=== PATIENT | female | born 1960 | race Hispanic/Latino ===

== ENCOUNTER 2020-06-15 21:45 | Inpatient (IN) | payer SELFPAY ==
[~2020-06-15] VITALS: Ht 152.4 cm; Wt 78.0 kg
[2020-06-15] MEDS ORDERED: DEXAMETHASONE SOD PHOS 10 MG/1 ML VIAL IV ONE (22:00)
[2020-06-15] MEDS ORDERED: ACETAMINOPHEN 325 MG TAB PO ONE (22:00)
[2020-06-15] MEDS ORDERED: SODIUM CHLORIDE 0.9% 1000ML 1,000 ML ONE (22:08)
[2020-06-15] MEDS ORDERED: ACETAMINOPHEN 325 MG TAB ONE (22:08)
[2020-06-15] MEDS ORDERED: OSELTAMIVIR PHOSPHATE 75 MG CAP PO ONE (22:15)
[2020-06-15 22:17] LABS: HEMATOCRIT 35.3 % (34.2-44.1); HEMOGLOBIN 11.6 g/dL (12.0-16.0); LYMPHOCYTES # (AUTO) 0.3 (1.0-3.2); MEAN CORPUSCULAR HEMOGLOBIN 24.8 pg (28-32); MEAN CORPUSCULAR HGB CONC 32.9 g/dL (31-35); MEAN CORPUSCULAR VOLUME 75.4 fL (81-99); MONOCYTES # (AUTO) 0.1 (0.2-0.8); MONOCYTES % 1.4 % (4.4-11.3); NEUTROPHILS # (AUTO) 5.8 (2.1-6.9); NEUTROPHILS % 93.3 % (38.7-80.0); PLATELET COUNT 281 x10e3/uL (140-360); RED BLOOD COUNT 4.68 x10e6/uL (3.6-5.1); RED CELL DISTRIBUTION WIDTH 13.3 % (11.7-14.4)
[2020-06-15 22:31] LABS: ALBUMIN 3.3 g/dL (3.5-5.0); ALBUMIN/GLOBULIN RATIO 0.8 (0.8-2.0); ANION GAP 18.1 mmol/L (8-16); CALCIUM 9.5 mg/dL (8.4-10.2); CREATININE, SERUM 0.95 mg/dL (0.57-1.11); POTASSIUM 4.1 mmol/L (3.5-5.1)
[2020-06-15] MEDS ORDERED: AZITHROMYCIN 500MG/NS 250 ML 250 ML IV STA (22:35)
[2020-06-15] MEDS ORDERED: CEFTRIAXONE SOD 1 GM/NS 50 ML 50 ML IV ONE (22:45)
[2020-06-16] VITALS (10 sets, daily range): BP systolic 114–139; BP diastolic 48–67
[2020-06-16] MEDS ORDERED: DIOVAN80 MG PO (01:26)
[2020-06-16] MEDS ORDERED: AMLODIPINE BESY10 MG PO (01:26)
[2020-06-16] MEDS ORDERED: GLIMEPIRIDE2 MG PO (01:26)
[2020-06-16] MEDS ORDERED: TRICOR145 MG PO (01:26)
[2020-06-16] MEDS ORDERED: METFORMIN HCL500 MG PO (01:26)
[2020-06-16] MEDS ORDERED: LIPITOR20 MG PO (01:26)
[2020-06-16] MEDS ORDERED: SODIUM CHLORIDE 0.9% 250ML 250 ML ONE ×2 (05:28→21:57)
[2020-06-16] MEDS: AZITHROMYCIN 500MG/NS 250 ML 250 ML IV SCH (05:30)
[2020-06-16 08:16] LABS: HEMATOCRIT 34.2 % (34.2-44.1); LYMPHOCYTES # (AUTO) 0.3 (1.0-3.2); LYMPHOCYTES % 7.6 % (18.0-39.1); MEAN CORPUSCULAR HEMOGLOBIN 24.6 pg (28-32); MEAN CORPUSCULAR HGB CONC 32.2 g/dL (31-35); MEAN CORPUSCULAR VOLUME 76.3 fL (81-99); MONOCYTES # (AUTO) 0.1 (0.2-0.8); MONOCYTES % 1.6 % (4.4-11.3); NEUTROPHILS # (AUTO) 3.9 (2.1-6.9); NEUTROPHILS % 90.6 % (38.7-80.0); PLATELET COUNT 268 x10e3/uL (140-360); RED BLOOD COUNT 4.48 x10e6/uL (3.6-5.1); RED CELL DISTRIBUTION WIDTH 13.3 % (11.7-14.4)
[2020-06-16] MEDS: ENOXAPARIN 30 MG/0.3 ML SYR SC SCH ×2 (08:17→20:07)
[2020-06-16] MEDS: ACETAMINOPHEN 325 MG TAB PO PRN ×2 (08:17→15:25)
[2020-06-16 08:33] LABS: ANION GAP 15.7 mmol/L (8-16); BLOOD UREA NITROGEN 9 mg/dL (7-26); BUN/CREATININE RATIO 11 (6-25); CALCIUM 9.3 mg/dL (8.4-10.2); CARBON DIOXIDE 21 mmol/L (22-29); CHLORIDE 102 mmol/L (98-107); CREATININE, SERUM 0.82 mg/dL (0.57-1.11); EST GLOMERULAR FILTRATION RATE > 60 ML/MIN (60-); GLUCOSE 342 mg/dL (74-118); POTASSIUM 4.7 mmol/L (3.5-5.1); SODIUM 134 mmol/L (136-145)
[2020-06-16] MEDS ORDERED: INSULIN LISPRO 100 UNIT/1 ML 3ML VIAL SQ NR (09:45)
[2020-06-16] MEDS ORDERED: DEXTROSE 50% SYRINGE 50 ML IV PRN (09:45)
[2020-06-16 10:50] LABS: LYMPHOCYTES % (MANUAL) 8 % (19-48); MONOCYTES % (MANUAL) 1 % (3.4-9.0); NEUTROPHILS % (MANUAL) 91 % (40-74)
[2020-06-16] MEDS: INSULIN LISPRO 100 UNIT/1 ML 3ML VIAL SQ SCH ×3 (11:30→20:07)
[2020-06-16] MEDS ORDERED: REMDESIVIR 200MG/NS 100ML 200 MG in SODIUM CHLORIDE 0.9% 100 ML 100 ML IV ONE (14:00)
[2020-06-16] MEDS ORDERED: DEXAMETHASONE SOD PHOS 10 MG/1 ML VIAL IV SCH (17:00)
[2020-06-16] MEDS: ALBUTEROL SULFATE HFA 8GM INHALATION AEROSOL INH SCH (20:00)
[2020-06-16] MEDS: GUAIFENESIN/DEXTROMETHORPHAN LIQD 5 ML UDC PO PRN (20:07)
[2020-06-16] MEDS: ATORVASTATIN 20 MG TAB PO SCH (20:07)
[2020-06-16] MEDS ORDERED: CEFTRIAXONE SOD 1 GM/NS 50 ML 50 ML IV SCH (22:00)
[2020-06-17] VITALS (10 sets, daily range): BP systolic 99–138; BP diastolic 39–73
[2020-06-17] MEDS: ALBUTEROL SULFATE HFA 8GM INHALATION AEROSOL INH SCH ×4 (01:14→19:00)
[2020-06-17] MEDS: AZITHROMYCIN 500MG/NS 250 ML 250 ML IV SCH (04:45)
[2020-06-17] MEDS: GUAIFENESIN/DEXTROMETHORPHAN LIQD 5 ML UDC PO PRN (07:32)
[2020-06-17] MEDS: INSULIN LISPRO 100 UNIT/1 ML 3ML VIAL SQ SCH ×4 (07:34→21:32)
[2020-06-17] MEDS: ENOXAPARIN 30 MG/0.3 ML SYR SC SCH ×2 (08:11→21:30)
[2020-06-17] MEDS: ACETAMINOPHEN 325 MG TAB PO PRN (08:12)
[2020-06-17] MEDS: REMDESIVIR 100MG/NS 100ML 100 MG in SODIUM CHLORIDE 0.9% 100 ML 100 ML IV SCH (13:10)
[2020-06-17] MEDS: PREDNISONE 20 MG TAB PO SCH (16:08)
[2020-06-17] MEDS: ATORVASTATIN 20 MG TAB PO SCH (21:30)
[2020-06-18] VITALS (7 sets, daily range): BP systolic 106–137; BP diastolic 55–63
[2020-06-18] MEDS: ALBUTEROL SULFATE HFA 8GM INHALATION AEROSOL INH SCH ×4 (01:00→19:30)
[2020-06-18] MEDS: GUAIFENESIN/DEXTROMETHORPHAN LIQD 5 ML UDC PO PRN ×2 (07:59→15:35)
[2020-06-18] MEDS: ENOXAPARIN 30 MG/0.3 ML SYR SC SCH ×2 (07:59→20:29)
[2020-06-18] MEDS: PREDNISONE 20 MG TAB PO SCH ×2 (07:59→15:34)
[2020-06-18] MEDS: ACETAMINOPHEN 325 MG TAB PO PRN ×2 (07:59→15:35)
[2020-06-18] MEDS: INSULIN LISPRO 100 UNIT/1 ML 3ML VIAL SQ SCH ×4 (08:14→20:30)
[2020-06-18] MEDS: REMDESIVIR 100MG/NS 100ML 100 MG in SODIUM CHLORIDE 0.9% 100 ML 100 ML IV SCH (14:19)
[2020-06-18] MEDS: ATORVASTATIN 20 MG TAB PO SCH (20:29)
[2020-06-19] VITALS (8 sets, daily range): BP systolic 90–156; BP diastolic 47–76
[2020-06-19] MEDS: ALBUTEROL SULFATE HFA 8GM INHALATION AEROSOL INH SCH ×4 (01:00→19:45)
[2020-06-19] MEDS: ACETAMINOPHEN 325 MG TAB PO PRN (04:10)
[2020-06-19 05:05] LABS: BASOPHILS % 0.2 % (0.0-1.0); EOSINOPHILS % 0.2 % (0.0-6.0); HEMATOCRIT 32.5 % (34.2-44.1); HEMOGLOBIN 10.6 g/dL (12.0-16.0); LYMPHOCYTES # (AUTO) 0.7 (1.0-3.2); MEAN CORPUSCULAR HEMOGLOBIN 25.1 pg (28-32); MEAN CORPUSCULAR HGB CONC 32.6 g/dL (31-35); MEAN CORPUSCULAR VOLUME 76.8 fL (81-99); MONOCYTES # (AUTO) 0.1 (0.2-0.8); MONOCYTES % 1.5 % (4.4-11.3); NEUTROPHILS # (AUTO) 5.6 (2.1-6.9); NEUTROPHILS % 86.2 % (38.7-80.0); PLATELET COUNT 446 x10e3/uL (140-360); RED BLOOD COUNT 4.23 x10e6/uL (3.6-5.1); RED CELL DISTRIBUTION WIDTH 13.6 % (11.7-14.4)
[2020-06-19 05:25] LABS: ALANINE AMINOTRANSFERASE 48 IU/L (0-55); ALBUMIN 2.6 g/dL (3.5-5.0); ALBUMIN/GLOBULIN RATIO 0.7 (0.8-2.0); ALKALINE PHOSPHATASE 79 IU/L (40-150); ANION GAP 16.7 mmol/L (8-16); BLOOD UREA NITROGEN 13 mg/dL (7-26); BUN/CREATININE RATIO 19 (6-25); CALCIUM 8.9 mg/dL (8.4-10.2); CARBON DIOXIDE 26 mmol/L (22-29); CHLORIDE 98 mmol/L (98-107); CREATININE, SERUM 0.67 mg/dL (0.57-1.11); EST GLOMERULAR FILTRATION RATE > 60 ML/MIN (60-); GLUCOSE 221 mg/dL (74-118); MAGNESIUM 1.6 MG/DL (1.3-2.1); POTASSIUM 3.7 mmol/L (3.5-5.1); SODIUM 137 mmol/L (136-145)
[2020-06-19] MEDS: INSULIN LISPRO 100 UNIT/1 ML 3ML VIAL SQ SCH ×4 (07:30→20:45)
[2020-06-19] MEDS: PREDNISONE 20 MG TAB PO SCH ×2 (09:07→16:06)
[2020-06-19] MEDS: ENOXAPARIN 30 MG/0.3 ML SYR SC SCH ×2 (09:07→20:45)
[2020-06-19] MEDS: REMDESIVIR 100MG/NS 100ML 100 MG in SODIUM CHLORIDE 0.9% 100 ML 100 ML IV SCH (14:21)
[2020-06-19] MEDS: ATORVASTATIN 20 MG TAB PO SCH (20:45)
[2020-06-20] VITALS (8 sets, daily range): BP systolic 121–153; BP diastolic 49–77
[2020-06-20] MEDS: ALBUTEROL SULFATE HFA 8GM INHALATION AEROSOL INH SCH ×5 (01:30→19:20)
[2020-06-20] MEDS: ACETAMINOPHEN 325 MG TAB PO PRN ×2 (03:46→21:16)
[2020-06-20] MEDS: GUAIFENESIN/DEXTROMETHORPHAN LIQD 5 ML UDC PO PRN (03:58)
[2020-06-20] MEDS: INSULIN LISPRO 100 UNIT/1 ML 3ML VIAL SQ SCH ×4 (07:30→21:00)
[2020-06-20] MEDS: ENOXAPARIN 30 MG/0.3 ML SYR SC SCH ×2 (08:47→21:00)
[2020-06-20] MEDS: PREDNISONE 20 MG TAB PO SCH ×2 (08:47→16:51)
[2020-06-20] MEDS: BENZONATATE 100 MG CAP PO SCH ×2 (14:03→21:00)
[2020-06-20] MEDS: REMDESIVIR 100MG/NS 100ML 100 MG in SODIUM CHLORIDE 0.9% 100 ML 100 ML IV SCH (14:03)
[2020-06-20] MEDS: ATORVASTATIN 20 MG TAB PO SCH (21:00)
[2020-06-21] VITALS (8 sets, daily range): BP systolic 112–156; BP diastolic 51–73
[2020-06-21] MEDS: ALBUTEROL SULFATE HFA 8GM INHALATION AEROSOL INH SCH ×3 (06:57→20:13)
[2020-06-21] MEDS: INSULIN LISPRO 100 UNIT/1 ML 3ML VIAL SQ SCH ×4 (07:30→20:15)
[2020-06-21] MEDS: PREDNISONE 20 MG TAB PO SCH ×2 (08:36→16:53)
[2020-06-21] MEDS: BENZONATATE 100 MG CAP PO SCH ×3 (08:36→20:25)
[2020-06-21] MEDS: ENOXAPARIN 30 MG/0.3 ML SYR SC SCH ×2 (08:36→20:25)
[2020-06-21] MEDS: ACETAMINOPHEN 325 MG TAB PO PRN (08:41)
[2020-06-21] MEDS: GUAIFENESIN/DEXTROMETHORPHAN LIQD 5 ML UDC PO PRN (10:10)
[2020-06-21] MEDS: ATORVASTATIN 20 MG TAB PO SCH (20:25)
[2020-06-22] VITALS (8 sets, daily range): BP systolic 111–153; BP diastolic 55–67
[2020-06-22] MEDS: ALBUTEROL SULFATE HFA 8GM INHALATION AEROSOL INH SCH ×4 (01:01→19:28)
[2020-06-22] MEDS: INSULIN LISPRO 100 UNIT/1 ML 3ML VIAL SQ SCH ×4 (07:30→21:00)
[2020-06-22] MEDS: PREDNISONE 20 MG TAB PO SCH ×2 (08:06→16:38)
[2020-06-22] MEDS: ENOXAPARIN 30 MG/0.3 ML SYR SC SCH ×2 (08:06→21:00)
[2020-06-22] MEDS: BENZONATATE 100 MG CAP PO SCH ×3 (08:06→21:00)
[2020-06-22] MEDS: GUAIFENESIN/DEXTROMETHORPHAN LIQD 5 ML UDC PO PRN ×2 (09:00→16:39)
[2020-06-22] MEDS: ACETAMINOPHEN 325 MG TAB PO PRN (16:39)
[2020-06-22] MEDS: ATORVASTATIN 20 MG TAB PO SCH (21:00)
[2020-06-22] MEDS: GUAIFENESIN/CODEINE 10 ML CUP PO PRN (22:27)
[2020-06-23] VITALS (7 sets, daily range): BP systolic 119–151; BP diastolic 46–67
[2020-06-23] MEDS: ALBUTEROL SULFATE HFA 8GM INHALATION AEROSOL INH SCH ×4 (01:45→19:20)
[2020-06-23] MEDS: INSULIN LISPRO 100 UNIT/1 ML 3ML VIAL SQ SCH ×4 (08:04→21:00)
[2020-06-23] MEDS: BENZONATATE 100 MG CAP PO SCH ×3 (09:08→21:00)
[2020-06-23] MEDS: PREDNISONE 20 MG TAB PO SCH ×2 (09:08→17:12)
[2020-06-23] MEDS: ATORVASTATIN 20 MG TAB PO SCH (21:00)
[2020-06-23] MEDS: GUAIFENESIN/DEXTROMETHORPHAN LIQD 5 ML UDC PO PRN (21:02)
[2020-06-24] VITALS (7 sets, daily range): BP systolic 130–147; BP diastolic 51–61
[2020-06-24] MEDS: ALBUTEROL SULFATE HFA 8GM INHALATION AEROSOL INH SCH ×4 (00:50→19:28)
[2020-06-24] MEDS: BENZONATATE 100 MG CAP PO SCH ×3 (09:16→20:33)
[2020-06-24] MEDS: PREDNISONE 20 MG TAB PO SCH (09:16)
[2020-06-24] MEDS: ACETAMINOPHEN 325 MG TAB PO PRN ×2 (09:27→17:26)
[2020-06-24] MEDS: INSULIN LISPRO 100 UNIT/1 ML 3ML VIAL SQ SCH ×4 (09:29→22:41)
[2020-06-24] MEDS: ATORVASTATIN 20 MG TAB PO SCH (20:33)
[2020-06-24] MEDS: GUAIFENESIN/DEXTROMETHORPHAN LIQD 5 ML UDC PO PRN (20:34)
[2020-06-25] VITALS (7 sets, daily range): BP systolic 109–149; BP diastolic 49–95
[2020-06-25] MEDS: ALBUTEROL SULFATE HFA 8GM INHALATION AEROSOL INH SCH ×4 (01:00→20:40)
[2020-06-25 06:26] LABS: BASOPHILS % 0.3 % (0.0-1.0); EOSINOPHILS # (AUTO) 0.1 (0.0-0.4); EOSINOPHILS % 1.6 % (0.0-6.0); HEMATOCRIT 34.5 % (34.2-44.1); HEMOGLOBIN 11.1 g/dL (12.0-16.0); LYMPHOCYTES # (AUTO) 1.3 (1.0-3.2); LYMPHOCYTES % 17.9 % (18.0-39.1); MEAN CORPUSCULAR HEMOGLOBIN 24.7 pg (28-32); MEAN CORPUSCULAR HGB CONC 32.2 g/dL (31-35); MEAN CORPUSCULAR VOLUME 76.8 fL (81-99); MONOCYTES # (AUTO) 0.4 (0.2-0.8); MONOCYTES % 4.7 % (4.4-11.3); NEUTROPHILS # (AUTO) 5.4 (2.1-6.9); NEUTROPHILS % 72.4 % (38.7-80.0); PLATELET COUNT 461 x10e3/uL (140-360); RED BLOOD COUNT 4.49 x10e6/uL (3.6-5.1); RED CELL DISTRIBUTION WIDTH 13.3 % (11.7-14.4)
[2020-06-25 06:47] LABS: ALANINE AMINOTRANSFERASE 66 IU/L (0-55); ALBUMIN 2.6 g/dL (3.5-5.0); ALBUMIN/GLOBULIN RATIO 0.8 (0.8-2.0); ALKALINE PHOSPHATASE 77 IU/L (40-150); ANION GAP 14.2 mmol/L (8-16); BLOOD UREA NITROGEN 16 mg/dL (7-26); BUN/CREATININE RATIO 21 (6-25); CALCIUM 8.9 mg/dL (8.4-10.2); CARBON DIOXIDE 25 mmol/L (22-29); CHLORIDE 99 mmol/L (98-107); CREATININE, SERUM 0.76 mg/dL (0.57-1.11); EST GLOMERULAR FILTRATION RATE > 60 ML/MIN (60-); GLUCOSE 286 mg/dL (74-118); MAGNESIUM 1.6 MG/DL (1.3-2.1); POTASSIUM 4.2 mmol/L (3.5-5.1); SODIUM 134 mmol/L (136-145)
[2020-06-25] MEDS: INSULIN LISPRO 100 UNIT/1 ML 3ML VIAL SQ SCH ×4 (08:05→21:00)
[2020-06-25] MEDS: BENZONATATE 100 MG CAP PO SCH ×3 (08:05→21:00)
[2020-06-25] MEDS: ACETAMINOPHEN 325 MG TAB PO PRN (17:10)
[2020-06-25] MEDS: GUAIFENESIN/CODEINE 10 ML CUP PO PRN (17:11)
[2020-06-25] MEDS: ATORVASTATIN 20 MG TAB PO SCH (21:00)
[2020-06-25] MEDS: GUAIFENESIN/DEXTROMETHORPHAN LIQD 5 ML UDC PO PRN (23:03)
[2020-06-26] VITALS (8 sets, daily range): BP systolic 107–125; BP diastolic 44–68
[2020-06-26] MEDS: ALBUTEROL SULFATE HFA 8GM INHALATION AEROSOL INH SCH ×4 (00:55→21:28)
[2020-06-26] MEDS: BENZONATATE 100 MG CAP PO SCH ×3 (09:47→21:28)
[2020-06-26] MEDS: INSULIN LISPRO 100 UNIT/1 ML 3ML VIAL SQ SCH ×4 (10:51→21:35)
[2020-06-26] MEDS: SUCRALFATE 1 GM/10 ML SUSP NG SCH ×4 (12:50→21:28)
[2020-06-26] MEDS ORDERED: ENOXAPARIN SOD INJ 40 MG/0.4 ML SYR SC SCH (17:00)
[2020-06-26] MEDS: ATORVASTATIN 20 MG TAB PO SCH (21:28)
[2020-06-26] MEDS: ACETAMINOPHEN 325 MG TAB PO PRN (21:38)
[2020-06-27] MEDS: ALBUTEROL SULFATE HFA 8GM INHALATION AEROSOL INH SCH ×3 (00:40→12:03)
[2020-06-27 01:13] VITALS: BP 100/49
[2020-06-27 06:34] VITALS: BP 127/73
[2020-06-27] MEDS ORDERED: PANTOPRAZOLE SOD 40 MG TABEC PO SCH (07:30)
[2020-06-27 07:44] VITALS: BP 127/73
[2020-06-27 08:07] VITALS: BP 134/59
[2020-06-27] MEDS: INSULIN LISPRO 100 UNIT/1 ML 3ML VIAL SQ SCH ×2 (09:00→12:52)
[2020-06-27] MEDS: SUCRALFATE 1 GM/10 ML SUSP NG SCH ×2 (09:43→12:03)
[2020-06-27] MEDS: BENZONATATE 100 MG CAP PO SCH (09:43)
[2020-06-27 11:31] VITALS: BP 123/57
[2020-06-27 15:40] VITALS: BP 122/72
== END 2020-06-27 18:00 | disposition home or self-care (01) | DRG 177 ==
LOC: ER 21:50 → ERHOLD 23:49 → IMCU 06-16 00:10
PROVIDERS: ADMIT Internal Medicine; ATTEND Internal Medicine
PROC: 02HV33Z Insertion of Infusion Device into Superior Vena Cava, Percutaneous Approach (ICD-10-PCS; principal; 2020-06-16)
PROC: B548ZZA Ultrasonography of Superior Vena Cava, Guidance (ICD-10-PCS; 2020-06-16)
PROC: XW043E5 Introduction of Remdesivir Anti-infective into Central Vein, Percutaneous Approach, New Technology Group 5 (ICD-10-PCS; 2020-06-16)
PROC: 3E0433Z Introduction of Anti-inflammatory into Central Vein, Percutaneous Approach (ICD-10-PCS; 2020-06-16)
DX: U07.1 COVID-19 (principal); J12.82 Pneumonia due to coronavirus disease 2019; J96.01 Acute respiratory failure with hypoxia; E87.1 Hypo-osmolality and hyponatremia; E11.65 Type 2 diabetes mellitus with hyperglycemia; I10 Essential (primary) hypertension; E78.00 Pure hypercholesterolemia, unspecified; Z82.49 Family history of ischemic heart disease and other diseases of the circulatory system; E66.9 Obesity, unspecified; Z68.33 Body mass index [BMI] 33.0-33.9, adult; R53.81 Other malaise; D64.9 Anemia, unspecified; Z79.84 Long term (current) use of oral hypoglycemic drugs
CPT/HCPCS: 36415; 36569; 71045; 80048; 80053; 82948; 83605; 83735; 84484; 85025; 87040; 87400; 96372; 99251; 99284; J0456; J0696; J1100; J1650; J7030; J7050; J7512; U0002

== ENCOUNTER 2020-07-09 15:49 | Emergency (ER) | payer SELFPAY ==
[~2020-07-09] VITALS: Ht 152.4 cm; Wt 78.0 kg
[~2020-07-09 15:49] MED LIST: AMLODIPINE BESY10 MG PO; DIOVAN80 MG PO; GLIMEPIRIDE2 MG PO; LIPITOR20 MG PO; METFORMIN HCL500 MG PO; TRICOR145 MG PO
[2020-07-09 16:06] LABS: BASOPHILS % 0.6 % (0.0-1.0); EOSINOPHILS # (AUTO) 0.3 (0.0-0.4); EOSINOPHILS % 4.4 % (0.0-6.0); HEMATOCRIT 36.3 % (34.2-44.1); HEMOGLOBIN 11.6 g/dL (12.0-16.0); LYMPHOCYTES # (AUTO) 1.8 (1.0-3.2); LYMPHOCYTES % 25.8 % (18.0-39.1); MEAN CORPUSCULAR HEMOGLOBIN 25.3 pg (28-32); MEAN CORPUSCULAR VOLUME 79.3 fL (81-99); MONOCYTES # (AUTO) 0.3 (0.2-0.8); MONOCYTES % 4.3 % (4.4-11.3); NEUTROPHILS # (AUTO) 4.5 (2.1-6.9); NEUTROPHILS % 64.3 % (38.7-80.0); PLATELET COUNT 282 x10e3/uL (140-360); RED BLOOD COUNT 4.58 x10e6/uL (3.6-5.1); RED CELL DISTRIBUTION WIDTH 15.5 % (11.7-14.4)
[2020-07-09 16:29] LABS: ALANINE AMINOTRANSFERASE 38 IU/L (0-55); ALBUMIN 3.7 g/dL (3.5-5.0); ALBUMIN/GLOBULIN RATIO 0.9 (0.8-2.0); ALKALINE PHOSPHATASE 90 IU/L (40-150); ANION GAP 20.9 mmol/L (8-16); BLOOD UREA NITROGEN 9 mg/dL (7-26); BUN/CREATININE RATIO 11 (6-25); CALCIUM 9.5 mg/dL (8.4-10.2); CARBON DIOXIDE 21 mmol/L (22-29); CHLORIDE 104 mmol/L (98-107); EST GLOMERULAR FILTRATION RATE > 60 ML/MIN (60-); GLUCOSE 132 mg/dL (74-118); POTASSIUM 3.9 mmol/L (3.5-5.1); SODIUM 142 mmol/L (136-145)
[2020-07-09] MEDS ORDERED: IOPAMIDOL 370 MG/ML 200 ML INFUS..BTL INJ ONE (16:52)
[2020-07-09] MEDS ORDERED: SODIUM CHLORIDE 0.9% 50ML 50 ML ONE (16:52)
[2020-07-09 18:45] VITALS: BP 110/59
== END 2020-07-09 18:50 | disposition home or self-care (01) ==
LOC: ER 15:59
DX: R07.89 Other chest pain (principal); R53.1 Weakness; R53.81 Other malaise; I10 Essential (primary) hypertension; E11.65 Type 2 diabetes mellitus with hyperglycemia
CPT/HCPCS: 36415; 71260; 80053; 83690; 83880; 84484; 85025; 93005; 99284; Q9967

== ENCOUNTER → 2024-12-29 | Outpatient (REF) | payer MEDICARE | LOC: MAMMO 10:05 | PROVIDERS: ATTEND Specialist/Technologist, Other Surgical Technologist | DX: Z12.31 Encounter for screening mammogram for malignant neoplasm of breast (principal); M54.50 Low back pain, unspecified | CPT/HCPCS: 72110; 77067 ==

== ENCOUNTER → 2025-02-28 | Outpatient (REF) | payer MEDICARE ==
[~2025-02-28] MED LIST changes: +IOPAMIDOL 370 MG/ML 100 ML INFUS..BTL INJ ONE
[2025-02-28 10:19] LABS: EST GLOMERULAR FILTRATION RATE 82.0 ML/MIN (>=60)
== END ==
LOC: CT 09:09
PROVIDERS: ATTEND Specialist/Technologist, Other Surgical Technologist
DX: M89.9 Disorder of bone, unspecified (principal)
CPT/HCPCS: 36415; 72132; 82565; 84520; Q9967